=== PATIENT | female | born 1975 ===

== ENCOUNTER 2016-11-28 08:14 | Outpatient (CLI) | payer BC ==
--- NOTE | 2016-11-28 15:42 | Mammography Report ---
STEREOTACTIC VACUUM ASSISTED BIOPSY WITH CLIP PLACEMENT TWO SITES LEFT BREAST: 11/28/16 08:14:00 CLINICAL: 2 groups of suspicious calcifications. COMPARISON:Recent mammogram from [facility]UUM SYSTEM TESTER FINDINGS: Consent for the procedure was obtained. The more superior and lateral group of calcificationswere targeted with stereotactic guidance. The skin was prepped with Betadine and anesthetized with 1% lidocaine. 2% lidocaine with epinephrine was injected for deeper anesthesia. 8 gauge Mammotome biopsy was performed from a lateral approach through a small dermatotomy. Prefire and post-fire images demonstrated satisfactory positioning of the probe. Samples were obtained around the clock face. A specimen radiograph confirmed satisfactory sampling with removal of b2b sales representative calcifications. A MammoMark 8 clip was placed at the biopsy site and the placement was confirmed with a radiograph. The more medial and inferiorcalcifications were targeted with stereotactic guidance. The skin was prepped with Betadine and anesthetized with 1% lidocaine. 2% lidocaine with epinephrine was injected for deeper anesthesia. 8 gauge Mammotome biopsy was performed from a CC from below approach through a small dermatotomy. Prefire and post-fire images demonstrated satisfactory positioning of the probe. Samples were obtained around the clock face. A specimen radiograph confirmed satisfactory sampling with removal of a few calcifications. A Biomarc 8 clip was placed at the biopsy site and the placement was confirmed with a radiograph. Hemostasis was achieved with mild pressure after removal of the probes. Sterile dressings were applied. The patient tolerated the procedure well and there were no apparent complications. A 2 view mammogram demonstrated concordant position of both clips. IMPRESSION: Uncomplicated stereotactic biopsy with clip placement at two sites in the left breast.
--- NOTE | 2016-11-28 15:42 | Mammography Report ---
STEREOTACTIC VACUUM ASSISTED BIOPSY WITH CLIP PLACEMENT TWO SITES LEFT BREAST: 11/28/16 08:14:00 CLINICAL: 2 groups of suspicious calcifications. COMPARISON:Recent mammogram from [facility]IOR MANAGEMENT CONSULTANT FINDINGS: Consent for the procedure was obtained. The more superior and lateral group of calcificationswere targeted with stereotactic guidance. The skin was prepped with Betadine and anesthetized with 1% lidocaine. 2% lidocaine with epinephrine was injected for deeper anesthesia. 8 gauge Mammotome biopsy was performed from a lateral approach through a small dermatotomy. Prefire and post-fire images demonstrated satisfactory positioning of the probe. Samples were obtained around the clock face. A specimen radiograph confirmed satisfactory sampling with removal of utility sales representative calcifications. A MammoMark 8 clip was placed at the biopsy site and the placement was confirmed with a radiograph. The more medial and inferiorcalcifications were targeted with stereotactic guidance. The skin was prepped with Betadine and anesthetized with 1% lidocaine. 2% lidocaine with epinephrine was injected for deeper anesthesia. 8 gauge Mammotome biopsy was performed from a CC from below approach through a small dermatotomy. Prefire and post-fire images demonstrated satisfactory positioning of the probe. Samples were obtained around the clock face. A specimen radiograph confirmed satisfactory sampling with removal of a few calcifications. A Biomarc 8 clip was placed at the biopsy site and the placement was confirmed with a radiograph. Hemostasis was achieved with mild pressure after removal of the probes. Sterile dressings were applied. The patient tolerated the procedure well and there were no apparent complications. A 2 view mammogram demonstrated concordant position of both clips. IMPRESSION: Uncomplicated stereotactic biopsy with clip placement at two sites in the left breast.
--- NOTE | 2016-11-28 15:51 | Mammography Report ---
LEFT DIGITAL DIAGNOSTIC MAMMOGRAM: 11/28/16 08:14:00 CLINICAL: For clip placement immediately status post stereotactic biopsy at 2 sites in the left breast. COMPARISON:A recent [facility] MACHINE OPERATOR mammogram. FINDINGS: A biopsy clip is identified in the upper outer quadrant and correlates with previously described suspicious calcifications and sample site 1. A second clip is identified at 6 o'clock and correlates with sample site 2. Layering calcifications with benign morphology are identified 1.9 cm posterior to the clip at 6 o'clock on the lateral view. These calcifications are not definitively identified on the CC view which is further evidence supporting that these are benign calcifications. IMPRESSION: Concordant clip placement status post stereotactic biopsy of calcifications at these sites. BI-RADS CATEGORY: 4--Suspicious Pathology pending.
== END 2016-11-28 08:15 | disposition home or self-care (01) ==
LOC: SPVWC 08:14
PROVIDERS: ATTEND Surgery
DX: R92.0 Mammographic microcalcification found on diagnostic imaging of breast (principal)
CPT/HCPCS: 19081; 19082; 88305; A4648; G0206